=== PATIENT | female | born 1945 | race Two or more races ===

== ENCOUNTER 2018-06-05 09:27 | Inpatient (IN) | payer SELFPAY ==
[~2018-06-05] VITALS: Ht 129.5 cm; Wt 70.0 kg
[2018-06-05 10:00] LABS: Urine Bacteria FEW /hpf (None Seen); Urine Blood Negative /uL (Negative); Urine Mucus FEW (None Seen); Urine Specific Gravity 1.015 (1.001-1.035); Urine WBC 1 /hpf (0 - 5)
[2018-06-05 11:04] LABS: Basophils # (auto) 0 uL; Basophils % (auto) 0.3 % (0.0-2.0); Eosinophils # (auto) 0.1 uL; Eosinophils % (auto) 3.3 % (0.0-7.0); Hematocrit 40.1 % (36.0-46.0); Hemoglobin 13.7 g/dL (12.2-16.2); Lymphocytes # (auto) 0.8 uL; Lymphocytes % (auto) 22.5 % (10.0-50.0); Mean Corpuscular Hgb Conc. 34.2 g/dL (32.0-36.0); Mean Corpuscular Volume 96.3 fL (80.0-100.0); Monocytes # (auto) 0.3 uL; Monocytes % (auto) 9.1 % (0.0-12.0); Neutrophils # (auto) 2.4 uL; Neutrophils % (auto) 64.8 % (37.0-80.0); Nucleated Red Blood Cells % 0.1 %; Platelet Count (auto) 100 10^3/uL (140-450); Red Blood Cells 4.17 10^6/uL (4.0-5.20); Red Cell Distribution Width 14.2 % (11.8-14.3); White Blood Cell 3.7 10^3/uL (4.4-10.8)
[2018-06-05 11:25] LABS: Albumin 3.1 g/dL (3.4-5.0); BUN/Creatinine Ratio 11.9; Bilirubin, Total 0.7 mg/dL (0.2-1.0); Calcium 8.6 mg/dL (8.5-10.1); Potassium 4.7 mmol/L (3.5-5.1); Total Protein 8.4 g/dL (6.4-8.2)
[2018-06-05 12:56] LABS: INR 1.07 (0.9-1.15); Partial Thromboplastin Time 26.7 sec (23.78-33.04); Prothrombin Time 11.4 sec (9.27-12.13)
[2018-06-05] MEDS ORDERED: MORPHINE SULF INJ 2 MG/ML SYRINGE 1ML IV PRN ×2 (16:00)
[2018-06-05] MEDS ORDERED: NITROGLYCERIN 0.4 MG SL TAB SL PRN (16:00)
[2018-06-05] MEDS ORDERED: TEMAZEPAM 15 MG CAP PO PRN (16:00)
[2018-06-05] MEDS ORDERED: PROMETHAZINE HCL 25 MG/ML 1ML IV PRN (16:00)
[2018-06-05] MEDS ORDERED: MORPHINE SULFATE 4 MG/ML SYR/VIAL IV PRN (16:00)
[2018-06-05] MEDS ORDERED: FUROSEMIDE 20 MG/2 ML VIAL IV ONE (16:00)
[2018-06-05] MEDS ORDERED: SPIRONOLACTONE 25 MG TAB PO ONE (16:00)
[2018-06-05] MEDS ORDERED: cefTRIAXone 1GM/10ml IVPUSH 10 ML IV ONE (16:00)
[2018-06-05] MEDS ORDERED: LORazepam 0.5 MG TAB PO PRN (16:00)
[2018-06-05] MEDS ORDERED: PROP60CA34 PO (16:14)
[2018-06-05] MEDS ORDERED: LOSA50TA6 PO (16:14)
[2018-06-05 16:28] LABS: Amylase 56 U/L (25-115); Lipase 83 U/L (73-393)
[2018-06-05 17:06] VITALS: BP 131/68
[2018-06-05] MEDS ORDERED: FUROSEMIDE 20 MG/2 ML VIAL IV SCH (18:00)
[2018-06-05] MEDS ORDERED: SPIRONOLACTONE 25 MG TAB PO SCH (18:00)
[2018-06-05 22:35] VITALS: BP 120/76
[2018-06-06 05:36] VITALS: BP 111/74
[2018-06-06 05:57] LABS: Basophils # (auto) 0 uL; Basophils % (auto) 0.8 % (0.0-2.0); Eosinophils # (auto) 0.1 uL; Eosinophils % (auto) 2.6 % (0.0-7.0); Hemoglobin 13.6 g/dL (12.2-16.2); Lymphocytes # (auto) 0.8 uL; Lymphocytes % (auto) 20.8 % (10.0-50.0); Mean Corpuscular Hemoglobin 33.7 pg (28.0-32.0); Mean Corpuscular Hgb Conc. 34.9 g/dL (32.0-36.0); Mean Corpuscular Volume 96.6 fL (80.0-100.0); Monocytes # (auto) 0.4 uL; Monocytes % (auto) 9.9 % (0.0-12.0); Neutrophils # (auto) 2.4 uL; Neutrophils % (auto) 65.9 % (37.0-80.0); Nucleated Red Blood Cells % 0.3 %; Platelet Count (auto) 83 10^3/uL (140-450); Red Blood Cells 4.04 10^6/uL (4.0-5.20); Red Cell Distribution Width 14.7 % (11.8-14.3); White Blood Cell 3.7 10^3/uL (4.4-10.8)
[2018-06-06] MEDS ORDERED: FLUMAZENIL 0.1 MG/ML INJ 10ML MDV IV ONE (08:13)
[2018-06-06] MEDS ORDERED: LIDOCAINE VISCOUS 2% 15ML UD ONE (08:13)
[2018-06-06] MEDS ORDERED: NALOXONE HCL 0.4 MG/ML VIAL ONE (08:13)
[2018-06-06] MEDS ORDERED: diphenhdrAMINE HCL 50 MG/1 ML VL ONE (08:13)
[2018-06-06] MEDS ORDERED: SODIUM CHLORIDE LOCK 10 ML ONE (08:14)
[2018-06-06 08:30] VITALS: BP 119/76
[2018-06-06 08:45] VITALS: BP 119/76
[2018-06-06] MEDS: MIDAZOLAM HCL 5 MG/ML-1ML VIAL ONE ×2 (09:20→09:25)
[2018-06-06] MEDS: fentaNYL CITRATE 100 MCG/2 ML VL ONE ×2 (09:20→09:25)
[2018-06-06] MEDS ORDERED: PANTOPRAZOLE 40 MG TAB PO SCH (10:00)
[2018-06-06] MEDS: SPIRONOLACTONE 25 MG TAB PO SCH (10:00)
[2018-06-06] MEDS: ENOXAPARIN SOD 40 MG/0.4 ML SYRINGE SC SCH (10:00)
[2018-06-06] MEDS ORDERED: FUROSEMIDE 20 MG TAB PO SCH (10:00)
[2018-06-06 10:06] LABS: Hepatitis B Surface Antibody Negative
[2018-06-06 10:34] LABS: Hepatitis A Total Antibody Positive
[2018-06-06] MEDS: cefTRIAXone 1GM/10ml IVPUSH 10 ML IV SCH (10:47)
[2018-06-06 11:49] LABS: Hepatitis B Core Total AB Negative; Hepatitis B Surface Antigen Negative (Negative)
[2018-06-06 11:52] LABS: Hepatitis C Antibody Positive (Negative)
[2018-06-06 13:00] VITALS: BP 124/74
[2018-06-06] MEDS: PANTOPRAZOLE 40 MG/10 ML VIAL IV SCH (15:11)
[2018-06-06 17:00] VITALS: BP 137/76
[2018-06-06 21:48] VITALS: BP 121/74
[2018-06-07 04:45] VITALS: BP 117/77
[2018-06-07] MEDS: cefTRIAXone 1GM/10ml IVPUSH 10 ML IV SCH (08:57)
[2018-06-07 09:00] VITALS: BP 115/81
[2018-06-07] MEDS: PROPRANOLOL HCL 20 MG TAB PO SCH ×2 (09:15→14:29)
[2018-06-07] MEDS ORDERED: FUROSEMIDE 20 MG/2 ML VIAL IV SCH (10:00)
[2018-06-07] MEDS ORDERED: PANTOPRAZOLE 40 MG/10 ML VIAL IV SCH (10:00)
[2018-06-07] MEDS: PANTOPRAZOLE 40 MG/10 ML VIAL IV SCH (10:18)
[2018-06-07] MEDS: SPIRONOLACTONE 25 MG TAB PO SCH (10:18)
[2018-06-07] MEDS: ENOXAPARIN SOD 40 MG/0.4 ML SYRINGE SC SCH (10:19)
[2018-06-07 11:16] LABS: Hematocrit 44.1 % (36.0-46.0)
[2018-06-07 11:18] LABS: Hemoglobin 15.4 g/dL (12.2-16.2)
[2018-06-07 13:00] VITALS: BP 136/87
[2018-06-07 13:46] VITALS: BP 115/81
[2018-06-07 17:21] VITALS: BP 135/82
== END 2018-06-07 18:23 | disposition home or self-care (01) | DRG 433 ==
LOC: ER 09:31 → TELE 09:32 → TELE-WESTW 17:07
PROVIDERS: ADMIT Internal Medicine; ATTEND Family Medicine
PROC: 06L38CZ Occlusion of Esophageal Vein with Extraluminal Device, Via Natural or Artificial Opening Endoscopic (ICD-10-PCS; 2018-06-06)
PROC: 0W9G3ZZ Drainage of Peritoneal Cavity, Percutaneous Approach (ICD-10-PCS; principal; 2018-06-06 09:15)
DX: K74.69 Other cirrhosis of liver (principal); N39.0 Urinary tract infection, site not specified; R18.8 Other ascites; K76.6 Portal hypertension; I85.10 Secondary esophageal varices without bleeding; Z68.41 Body mass index [BMI] 40.0-44.9, adult; E66.01 Morbid (severe) obesity due to excess calories; E78.5 Hyperlipidemia, unspecified; B19.20 Unspecified viral hepatitis C without hepatic coma; D69.6 Thrombocytopenia, unspecified; I10 Essential (primary) hypertension; K31.89 Other diseases of stomach and duodenum; Z82.49 Family history of ischemic heart disease and other diseases of the circulatory system; Z83.3 Family history of diabetes mellitus
CPT/HCPCS: 10022; 36415; 43244; 49083; 71045; 74176; 76700; 76942; 80053; 81001; 82140; 82150; 83690; 83735; 85014; 85018; 85025; 85610; 85730; 86704; 86706; 86708; 86803; 86850; 86900; 86901; 87205; 87340; 89051; 93005; 94761; 96374; 96375; C9113; J0696; J2250

== ENCOUNTER 2024-04-01 11:20 | Emergency (ER) | payer MEDICAID ==
[~2024-04-01] VITALS: Ht 157.5 cm; Wt 76.8 kg
[~2024-04-01 11:20] MED LIST: LOSA-534 PO; PROP60CA34 PO
[2024-04-01] MEDS: FUROSEMIDE 40 MG/4 ML VIAL IV ONE (12:01)
[2024-04-01 12:10] LABS: Basophils # (auto) 0 10 ^3/uL (0-0.2); Basophils % (auto) 0.3 % (0.0-2.0); Hematocrit 35.6 % (36.0-46.0); Lymphocytes # (auto) 0.7 10 ^3/uL (0.4-5.4); Monocytes # (auto) 0.5 10 ^3/uL (0-1.3); Neutrophils # (auto) 2.6 10 ^3/uL (1.6-8.6)
[2024-04-01] MEDS: ALBUTEROL SULF 2.5 MG/0.5ML(0.5%) NEB SOLN NEB ONE (12:11)
[2024-04-01 12:12] LABS: Eosinophils # (auto) 0.1 10 ^3/uL (0-0.8); Eosinophils % (auto) 3.3 % (0.0-7.0); Hemoglobin 12.4 g/dL (12.2-16.2); Lymphocytes % (auto) 18.1 % (10.0-50.0); Mean Corpuscular Hemoglobin 35.7 pg (28.0-32.0); Mean Corpuscular Volume 101.9 fL (80.0-100.0); Monocytes % (auto) 12.3 % (0.0-12.0); Nucleated Red Blood Cells % 0.1 %; Red Blood Cells 3.49 10^6/uL (4.0-5.20); Red Cell Distribution Width 13.6 % (11.8-14.3)
[2024-04-01 12:29] LABS: Alanine Aminotransferase 26 U/L (7-40); Albumin 3.5 g/dL (3.2-4.8); Alkaline Phosphatase 143 U/L (46-116); Anion Gap 3 (5-15); Aspartate Aminotransferase 37 U/L (13-40); BUN/Creatinine Ratio 19.4 (10.0-20.0); Blood Urea Nitrogen 19 mg/dL (9-23); Calcium 9.4 mg/dL (8.5-10.1); Carbon Dioxide 27 mmol/L (20-30); Chloride 106 mmol/L (98-107); Glucose 90 mg/dL (74-106); Magnesium 1.6 mg/dL (1.6-2.6); Potassium 4.2 mmol/L (3.5-5.1); Sodium 136 mmol/L (136-145); Total Protein 7.1 g/dL (5.7-8.2)
[2024-04-01 12:55] LABS: Urine Bacteria None Seen /hpf (None Seen)
[2024-04-01 13:09] LABS: Urine Blood 1+ /uL (Negative); Urine Clarity Clear (Clear); Urine Color Light-Yellow (Yellow); Urine Protein, UAD Negative (Negative); Urine Specific Gravity 1.005 (1.001-1.035); Urine Urobilinogen Normal (Negative); Urine WBC <1 /hpf (0 - 5); Urine pH 6.5 (5.0-9.0)
[2024-04-01 14:45] VITALS: BP 148/68; PULSE 69; RESP 17; TEMP 98.9; O2SAT 98
== END 2024-04-01 14:46 | disposition home or self-care (01) ==
LOC: ER 11:20
DX: E87.5 Hyperkalemia (principal); D69.6 Thrombocytopenia, unspecified; I10 Essential (primary) hypertension; R53.83 Other fatigue
CPT/HCPCS: 36415; 71045; 80053; 81001; 83605; 83735; 83880; 84484; 85025; 93005; 94640; 96374; 99285; J1940